=== PATIENT | female | born 1980 | race African-American/Black ===

== ENCOUNTER 2017-11-24 18:17 | Emergency (ER) | payer BC, OTHER, SELFPAY ==
[2017-11-24] MEDS ORDERED: Ibuprofen 800 MG TAB ONE (19:31)
[2017-11-24] MEDS ORDERED: predniSONE 20 MG TAB ONE (19:31)
[2017-11-24] MEDS ORDERED: Azithromycin 250 MG TAB ONE (19:31)
== END 2017-11-24 19:41 | disposition home or self-care (01) ==
LOC: NAV ERS 18:17
DX: J02.9 Acute pharyngitis, unspecified (principal); E05.90 Thyrotoxicosis, unspecified without thyrotoxic crisis or storm; Z79.899 Other long term (current) drug therapy
CPT/HCPCS: 87804; 99283; J7506

== ENCOUNTER 2022-08-19 17:13 | Emergency (ER) | payer BC | END 2022-08-19 18:47 | disposition home or self-care (01) | LOC: NAV ERS 17:13 | DX: R07.89 Other chest pain (principal); M79.10 Myalgia, unspecified site; E03.9 Hypothyroidism, unspecified; I10 Essential (primary) hypertension; Z79.899 Other long term (current) drug therapy | CPT/HCPCS: 84484; 93005 ==